=== PATIENT | male | born 1985 | race Caucasian/White ===

== ENCOUNTER 2016-07-28 10:10 | Emergency (ER) | payer OTHER ==
[~2016-07-28] VITALS: Ht 180.3 cm; Wt 90.6 kg
[2016-07-28 12:30] LABS: ADD MIUA? NO; BILIRUBIN NEGATIVE; BLOOD NEGATIVE; COLOR YELLOW ((YELLOW)); GLUCOSE (STRIP) NEGATIVE; KETONES NEGATIVE; LEUKOCYTES NEGATIVE; NITRITE NEGATIVE; PROTEIN (STRIP) 30; SPECIFIC GRAVITY 1.025 (1.000-1.030); UROBILINOGEN 0.2 MG/DL (0.2-1.0)
[2016-07-28] MEDS ORDERED: NAPROSYN500 MG PO (14:00)
[2016-07-28] MEDS ORDERED: FLEXERIL10 MG PO (14:00)
[2016-07-28] MEDS ORDERED: ULTRAM50 MG PO (14:00)
[2016-07-28 14:16] VITALS: BP 156/93
== END 2016-07-28 14:18 | disposition home or self-care (01) ==
LOC: EME 10:10
PROVIDERS: Nurse Practitioner Family
DX: R10.9 Unspecified abdominal pain (principal); S50.812A Abrasion of left forearm, initial encounter; S50.312A Abrasion of left elbow, initial encounter; V00.181A Fall from other rolling-type pedestrian conveyance, initial encounter; F17.200 Nicotine dependence, unspecified, uncomplicated
CPT/HCPCS: 74000; 81003; 99281; 99283; J3010

== ENCOUNTER 2016-10-27 10:59 | Emergency (ER) | payer OTHER ==
[~2016-10-27] VITALS: Ht 177.8 cm; Wt 84.1 kg
[~2016-10-27 10:59] MED LIST: FLEXERIL10 MG PO; NAPROSYN500 MG PO; ULTRAM50 MG PO
[2016-10-27] MEDS ORDERED: FLEXERIL10 MG PO (13:20)
[2016-10-27] MEDS ORDERED: NAPROSYN500 MG PO (13:20)
[2016-10-27] MEDS ORDERED: LORTAB 5-325 M1 EACH PO (13:20)
[2016-10-27 13:37] VITALS: BP 134/70
== END 2016-10-27 13:37 | disposition home or self-care (01) ==
LOC: EME 10:59
DX: S80.811A Abrasion, right lower leg, initial encounter (principal); S20.311A Abrasion of right front wall of thorax, initial encounter; S30.811A Abrasion of abdominal wall, initial encounter; M25.561 Pain in right knee; M25.461 Effusion, right knee; V28.4XXA Motorcycle driver injured in noncollision transport accident in traffic accident, initial encounter; F17.200 Nicotine dependence, unspecified, uncomplicated
CPT/HCPCS: 71010; 73564; 99281; 99284

== ENCOUNTER 2016-11-03 07:57 | Emergency (ER) | payer OTHER ==
[~2016-11-03] VITALS: Ht 177.8 cm; Wt 88.5 kg
[~2016-11-03 07:57] MED LIST changes: +LORTAB 5-325 M1 EACH PO
[2016-11-03] MEDS ORDERED: MOTRIN800 MG PO (09:16)
[2016-11-03] MEDS ORDERED: VALIUM5 MG PO (09:16)
[2016-11-03 09:56] VITALS: BP 148/79
== END 2016-11-03 09:58 | disposition home or self-care (01) ==
LOC: EME 07:57
DX: S20.211A Contusion of right front wall of thorax, initial encounter (principal); V89.2XXD Person injured in unspecified motor-vehicle accident, traffic, subsequent encounter; F17.210 Nicotine dependence, cigarettes, uncomplicated; Z88.0 Allergy status to penicillin
CPT/HCPCS: 71020; 99281; 99283